=== PATIENT | female | born 1970 | race Caucasian/White ===

== ENCOUNTER 2018-04-21 11:07 | Emergency (ER) | payer OTHER ==
[~2018-04-21] VITALS: Ht 170.2 cm; Wt 56.7 kg
[2018-04-21] MEDS ORDERED: FLONASE 0.05%50 MCG NASAL ×3 (11:33→11:37)
[2018-04-21] MEDS ORDERED: ONDANSETRON HCL4 M2 PO ×3 (11:33→11:37)
[2018-04-21] MEDS ORDERED: TESSALON PERLE100 MG PO ×3 (11:33→11:37)
[2018-04-21] MEDS ORDERED: NORFLEX100 MG PO (11:37)
[2018-04-21 12:16] VITALS: BP 128/81
== END 2018-04-21 12:19 | disposition home or self-care (01) ==
LOC: ER 11:07
DX: J06.9 Acute upper respiratory infection, unspecified (principal); B34.9 Viral infection, unspecified